=== PATIENT | female | born 1935 | race Hispanic/Latino ===

== ENCOUNTER → 2018-12-08 | Day surgery (SDC) | payer MEDICARE ==
[2018-12-07 14:58] LABS: BASOPHILS % 0.4 % (0.0-1.0); EOSINOPHILS # (AUTO) 0.2 (0.0-0.4); EOSINOPHILS % 2.7 % (0.0-6.0); HEMATOCRIT 38.8 % (34.2-44.1); HEMOGLOBIN 12.7 g/dL (12.0-16.0); LYMPHOCYTES # (AUTO) 2.2 (1.0-3.2); MEAN CORPUSCULAR HEMOGLOBIN 28.6 pg (28-32); MEAN CORPUSCULAR HGB CONC 32.7 g/dL (31-35); MEAN CORPUSCULAR VOLUME 87.4 fL (81-99); MONOCYTES # (AUTO) 0.4 (0.2-0.8); MONOCYTES % 6.5 % (4.4-11.3); NEUTROPHILS # (AUTO) 3.9 (2.1-6.9); NEUTROPHILS % 57.1 % (38.7-80.0); PLATELET COUNT 270 x10e3/uL (140-360); RED BLOOD COUNT 4.44 x10e6/uL (3.6-5.1); RED CELL DISTRIBUTION WIDTH 13.4 % (11.7-14.4)
--- NOTE | 2018-12-07 15:04 | Diagnostic Imaging Report ---
EXAMINATION: CHEST 2 VIEWS INDICATION: Knee pain. Preop. ^PRE OP ^[id number] ^[id number] ^ANESTH PROT COMPARISON: None FINDINGS: TUBES and LINES: None. LUNGS: Lungs are well inflated. Lungs are clear. There is no evidence of pneumonia or pulmonary edema. PLEURA: No pleural effusion or pneumothorax. HEART AND MEDIASTINUM: The cardiomediastinal silhouette is unremarkable. BONES AND SOFT TISSUES: No acute osseous lesion. Soft tissues are unremarkable. UPPER ABDOMEN: No free air under the diaphragm. IMPRESSION: No acute thoracic abnormality. Signed by: Dr. Piter Robles M.D. on 12/07/2018 3:01 PM
[~2018-12-08] MED LIST: ACETAMINOPHEN/CODEINE 300MG - 30MG TAB ONE; BUPIVACAINE 0.5%/EPI 30 ML SDV INJ ONE; CEFAZOLIN SOD 2 GM/D5W 50ML 50 ML IV ONE; CLOPIDOGREL75 MG PO; DESFLURANE 240 ML BTL INH ONE; DEXAMETHASONE SOD PHOS INJ 4 MG/ML VIAL ONE; EPHEDRINE SULFATE INJ 50 MG/10 ML SYR ONE; FENTANYL CITRATE/PF 100MCG/2 ML INJ ONE; FLUOXETINE HCL20 MG PO; HYDRALAZINE HCL50 MG; ISOSORBIDE MONO20 MG PO; LIDOCAINE HCL 2% LOCAL INJ 5 ML SDV VIAL INJ ONE; METOPROLOL TART50 MG PO; MIDAZOLAM HCL 2 MG/2 ML VIAL ONE; MOBIC15 MG; ONDANSETRON HCL INJ 2MG/ML 2ML 2 MG/ML VIAL ONE; PROPOFOL IV EMULSION 10 MG/ML 20 ML VIAL ONE; RYBIX; ULTRAM50 MG PO
--- OUTSIDE RECORDS SUMMARY | 2018-12-08 07:52 | XMS REPORT | Summary of Care ---
Author Author [facility] Organization [facility] Address Unknown Phone Unavailable Encounter SHIVANI Fox(FIN) [id number] Date(s): 12/31/17 - 12/31/17 [facility] [address], [address] [place] [address]- [phone] Discharge Disposition: Home or Self Care Attending Physician: Lucian Enamorado MD Vital Signs Most recent to 1 oldest [Reference Range]: Height 154.94 cm (12/31/17 2:24 PM) Temperature Oral 97.6 DegF [96.4-99.1 DegF] (12/31/17 2:24 PM) Blood Pressure 133/81 mmHg [90-140/60-90 mmHg] (12/31/17 2:24 PM) Respiratory Rate 14 BRMIN [14-20 BRMIN] (12/31/17 2:24 PM) Peripheral Pulse 65 bpm Rate [60-100 bpm] (12/31/17 2:24 PM) Weight 83.807 kg (12/31/17 2:24 PM) Body Mass Index 34.91 m2 (12/31/17 2:24 PM) Problem List Condition Effective Dates Status Health Status Informant Blurry vision, left Active eye(Confirmed) Carpal tunnel Active syndrome(Confirmed) Chronic kidney Active disease, stage 3(Confirmed) Constipation(Confirm Active ed) Eczema(Confirmed) Active Edema of both Active legs(Confirmed) Rectocele(Confirmed) Active Hypertensive kidney Active disease, stage III(Confirmed) Impaired fasting Active glucose(Confirmed) Blindness of right Active eye(Confirmed) Left lumbar Active radiculopathy(Confir med) Major Active depression(Confirmed ) Hyperlipidemia, Active mixed(Confirmed) Obesity(Confirmed) Active Primary Active osteoarthritis of knees, bilateral(Confirmed) Ptosis(Confirmed) Active CAD S/P percutaneous Active coronary angioplasty(Confirme d) Right shoulder Active pain(Confirmed) History of coronary Active artery stent placement(Confirmed) Urinary Active incontinence, urge(Confirmed) Allergies, Adverse Reactions, Alerts Substance Reaction Severity Status NKDA Active Medications No Known Medications Results No data available for this section Immunizations Given and Recorded Vaccine Date Status Refusal Reason pneumococcal 13-valent vaccine1 09/23/17 Given influenza virus vaccine, inactivated2 08/03/17 Given influenza virus vaccine, inactivated 09/08/16 Given influenza virus vaccine, inactivated 09/11/15 Given influenza virus vaccine, inactivated3 08/02/14 Given influenza virus vaccine, inactivated4 08/23/13 Given pneumococcal 23-valent vaccine5 11/26/09 Given 1Result Comment: Patient waited 15 minutes, no reaction noted. 2Result Comment: Patient waited 15 minutes, no allergic reaction. 3Result Comment: fluzone high dose [[id number]]. Migrated from OBS ; Data migrated from [employer] on 12/04/2015. 4Result Comment: fluzone (>3 yrs.) [[id number]]. Migrated from OBS ; Data migrated from [employer] on 12/04/2015. 5Result Comment: historical. Migrated from OBS ; Data migrated from [employer] on 12/04/2015. Procedures Procedure Date Related Diagnosis Body Site Status Eye examination 02/04/17 Completed Cardiac catheterization1 Completed Cataract surgery2 Completed Cholecystectomy Completed Repair of ptosis Completed Suspension of bladder Completed 1and stent on 02/2011 , cath 10/28/2013 in [facility] 2left eye Social History Social History Type Response Substance Abuse Use: None. Alcohol Never Smoking Status Never smoker; Exposure to Tobacco Smoke None; Cigarette Smoking Last 365 Days No; Reg Smoking Cessation Counseling No entered on: 12/31/17 Assessment and Plan No data available for this section
--- OUTSIDE RECORDS SUMMARY | 2018-12-08 07:52 | XMS REPORT | Summary of Care ---
Author Author [facility] Organization [facility] Address Unknown Phone Unavailable Encounter HQ Ruddy(FIN) [id number] Date(s): 09/23/17 - 09/23/17 [facility] [address], [address] [place], [place] [address]- [phone] Discharge Disposition: Home or Self Care Attending Physician: Lucian Enamorado MD Vital Signs Most recent to 1 oldest [Reference Range]: Height 157.48 cm (09/23/17 11:15 AM) Temperature Oral 98.0 DegF [96.4-99.1 DegF] (09/23/17 11:15 AM) Blood Pressure 112/64 mmHg [90-140/60-90 mmHg] (09/23/17 11:15 AM) Respiratory Rate 16 BRMIN [14-20 BRMIN] (09/23/17 11:15 AM) Peripheral Pulse 67 bpm Rate [60-100 bpm] (09/23/17 11:15 AM) Weight 85 kg (09/23/17 11:15 AM) Body Mass Index 34.27 m2 (09/23/17 11:15 AM) Problem List Condition Effective Dates Status Health Status Informant Blurry vision, left Active eye(Confirmed) Chronic kidney Active disease, stage 3(Confirmed) Constipation(Confirm [...] Substance Reaction Severity Status NKDA Active Medications amoxicillin 500 mg oral tablet 500 mg=1 tab, PO, BID, X 10 day, # 20 tab, 0 Refill(s), Pharmacy: [id number] Start Date: 09/23/17 Stop Date: 10/03/17 Status: Ordered Results No data available for this section [...] allergic reaction. 3Result Comment: fluzone high dose [[id number]]. Migrated from OBS ; Data migrated from [employer] on 12/04/2015. 4Result Comment: fluzone (>3 yrs.) [[id number]]. Migrated from OBS ; Data migrated from [employer] on 12/04/2015. 5Result Comment: historical. Migrated from OBS ; Data migrated from [employer] on 12/04/2015. Procedures Procedure Date Related Diagnosis Body Site Eye examination 02/04/17 Cardiac catheterization1 Cataract surgery2 Cholecystectomy Repair of ptosis Suspension of bladder 1and stent on 02/2011 , cath 10/28/2013 in [facility] 2left eye Social History Social History Type Response Substance Abuse Use: None. Alcohol Never Smoking Status Never smoker; Exposure to Tobacco Smoke None; Cigarette Smoking Last 365 Days No; Reg Smoking Cessation Counseling No Assessment and Plan No data available for this section
--- OUTSIDE RECORDS SUMMARY | 2018-12-08 07:52 | XMS REPORT | Summary of Care ---
Author Author [facility] Organization [facility] Address Unknown Phone Unavailable Encounter SHIVANI Fox(FIN) [id number] Date(s): 05/11/18 - 05/12/18 [facility] [address], [address] [place], [place] [address]- [phone] Vital Signs No data available for this section Problem List Condition Effective Dates Status Health [...] Substance Reaction Severity Status NKDA Active Medications hydrochlorothiazide-losartan 12.5 mg-50 mg oral tablet See Instructions, # 90 tab, Refill(s) 1, TAKE 1 TABLET BY MOUTH DAILY, 07/06/18 0:34:58 CDT, Pharmacy: [email or web address] [id number] Start Date: 05/28/18 Stop Date: 07/06/18 Status: Completed hydrochlorothiazide-losartan 12.5 mg-50 mg oral tablet 1 tab, PO, Daily, # 90 tab, 1 Refill(s), Pharmacy: [email or web address] [id number] Start Date: 07/06/18 Status: Ordered hydrochlorothiazide-losartan 12.5 mg-50 mg oral tablet 1 tab, PO, Daily, # 30 tab, 1 Refill(s), Pharmacy: [facility] [id number] Start Date: 05/11/18 Stop Date: 08/26/18 Status: Discontinued Results No data available for this section Immunizations Given and Recorded Vaccine Date Status Refusal Reason influenza virus vaccine, inactivated 08/26/18 Given influenza virus vaccine, inactivated1 08/03/17 Given influenza virus vaccine, inactivated 09/08/16 Given influenza virus vaccine, inactivated 09/11/15 Given influenza virus vaccine, inactivated2 08/02/14 Given influenza virus vaccine, inactivated3 08/23/13 Given pneumococcal 13-valent vaccine4 09/23/17 Given pneumococcal 23-valent vaccine5 11/26/09 Given 1Result Comment: Patient waited 15 minutes, no allergic reaction. 2Result Comment: fluzone high dose [[id number]]. Migrated from OBS ; Data migrated from [employer] on 12/04/2015. 3Result Comment: fluzone (>3 yrs.) [[id number]]. Migrated from OBS ; Data migrated from [employer] on 12/04/2015. 4Result Comment: Patient waited 15 minutes, no reaction noted. 5Result Comment: historical. Migrated from OBS ; Data migrated from [employer] on 12/04/2015. Procedures Procedure Date Related Diagnosis Body Site Status Eye examination 04/26/18 Completed Cardiac catheterization1 Completed Cataract surgery2 Completed Cholecystectomy Completed Repair of ptosis Completed Suspension of bladder Completed 1and stent on 02/2011 , cath 10/28/2013 in [facility] 2left eye Social History Social History Type Response Substance Abuse Use: None. Alcohol Never Smoking Status Never smoker; Exposure to Tobacco Smoke None; Cigarette Smoking Last 365 Days No; Reg Smoking Cessation Counseling No entered on: 09/23/18 Assessment and Plan No data available for this section
--- OUTSIDE RECORDS SUMMARY | 2018-12-08 07:52 | XMS REPORT ---
Author [facility] Address Unknown Phone Unavailable Care Team Providers Care Lead Java Programmer Name Role Phone DIVINE MALAGON Unavailable Unavailable Problems This patient has no known problems. Allergies, Adverse Reactions, Alerts This patient has no known allergies or adverse reactions. Medications This patient has no known medications. Results Test Description Test Time Test Comments Text Results Atomic Results Result Comments CHEST 2 VIEWS 2018-12-07 15:00:00 [place] [address] Patient Name: OPHELIA LONDONO MR #: [id number] : 1935 Age/Sex: 83/F Req #: [id number] Adm Physician: Ordered by: DIVINE MALAGON MD Report #: [id number] Location: OR Room/Bed: Procedure: [id number] DX/CHEST 2 VIEWS Exam Date: 12/07/18 Exam Time: 1439 REPORT STATUS: Signed EXAMINATION: CHEST 2 VIEWS INDICATION: Knee p ain. Preop. PRE OP [id number] ANESTH PROT COMPARISON: None FINDINGS: TUBES and LINES: None. LUNGS: Lungs are well inflated. Lungs are clear. There is no evidence of pneumonia or pulmonary edema. PLEURA: No pleural effusion or pneumothorax. HEART AND MEDIASTINUM: The cardiomediastinal silhouette is unremarkable. BONES AND SOFT TISSUES: No acute osseous lesion. Soft tissues are unremarkable. UPPER ABDOMEN: No free air under the diaphragm. IMPRESSION: No acute thoracic abnormality. Signed by: Dr. Piter Robles M.D. on 12/07/2018 3:01 PM Dictated By: PITER ROBLES MD, MD 1501 Transcribed By: DARLING on 12/07/18 1501 COPY TO: DIVINE MALAGON MD
--- OUTSIDE RECORDS SUMMARY | 2018-12-08 07:52 | XMS REPORT | Summary of Care ---
Author Author [facility] Organization [facility] Address Unknown Phone Unavailable Encounter SHIVANI Fox(VIOLETA) [id number] Date(s): 12/31/17 - 12/31/17 [facility] [address], [address] [place] [address] [phone] Discharge Disposition: Home or Self Care Attending [...] allergic reaction. 3Result Comment: fluzone high dose [[id number]]. Migrated from OBS ; Data migrated from [employer] on 12/04/2015. 4Result Comment: fluzone (>3 yrs.) [[id number]]. Migrated from OBS ; Data migrated from [employer] on 12/04/2015. 5Result Comment: historical. Migrated from OBS ; Data migrated from [employer] on 12/04/2015. Procedures Procedure Date Related Diagnosis Body Site Status Eye examination 02/04/17 Completed Cardiac catheterization1 Completed Cataract surgery2 Completed Cholecystectomy Completed Repair of ptosis Completed Suspension of bladder Completed 1and stent on 02/2011 , cath 10/28/2013 in [facility] 2left eye Social History Social History Type Response Substance Abuse Use: None. Alcohol Never Smoking Status Never smoker; Exposure to Tobacco Smoke None; Cigarette Smoking Last 365 Days No; Reg Smoking Cessation Counseling No entered on: 12/31/17 Assessment and Plan No data available for this section
--- OUTSIDE RECORDS SUMMARY | 2018-12-08 07:52 | XMS REPORT | Summary of Care ---
Author Author [facility] Organization [facility] Address Unknown Phone Unavailable Encounter HQ Brielle_orion(FIN) [id number] Date(s): 05/05/18 - 05/05/18 [facility] [address], [address] [place] [address] [phone] Discharge Disposition: Home or Self Care Attending Physician: Lucian Enamorado MD Vital Signs Most recent to 1 oldest [Reference Range]: Height 154.94 cm (05/05/18 2:17 PM) Temperature Oral 97.9 DegF [96.4-99.1 DegF] (05/05/18 2:17 PM) Blood Pressure 108/51 mmHg [90-140/60-90 mmHg] (05/05/18 2:17 PM) Peripheral Pulse 65 bpm Rate [60-100 bpm] (05/05/18 2:17 PM) Weight 85.682 kg (05/05/18 2:17 PM) Body Mass Index 35.69 m2 (05/05/18 2:17 PM) Problem List Condition Effective Dates Status [...] allergic reaction. 3Result Comment: fluzone high dose [[id number]]. Migrated from OBS ; Data migrated from [employer] on 12/04/2015. 4Result Comment: fluzone (>3 yrs.) [[id number]]. Migrated from OBS ; Data migrated from [employer] on 12/04/2015. 5Result Comment: historical. Migrated from OBS ; Data migrated from [employer] on 12/04/2015. Procedures Procedure Date Related Diagnosis Body Site Status Eye examination 04/26/18 Completed Cardiac catheterization1 Completed Cataract surgery2 Completed Cholecystectomy Completed Repair of ptosis Completed Suspension of bladder Completed 1and stent on 02/2011 , cath 10/28/2013 in [facility] 2left eye Social History Social History Type Response Substance Abuse Use: None. Alcohol Never Smoking Status Never smoker; Exposure to Tobacco Smoke None; Cigarette Smoking Last 365 Days No; Reg Smoking Cessation Counseling No entered on: 05/05/18 Assessment and Plan No data available for this section
--- OUTSIDE RECORDS SUMMARY | 2018-12-08 07:52 | XMS REPORT | CCD ---
Author Author [facility] Organization [facility] Address Unknown Phone Unavailable Care Team Providers Care Poultry Husbandry Worker Name Role Phone Joel Galeana CP Allergies, Adverse Reactions, Alerts Substance Reaction Status NKDA Active Problem List Condition Effective Dates Status Arthritis Resolved Benign hypertension Active Cholecystectomy Active Hypertension Resolved OA - Osteoarthritis Active Stent Active Medications Medication Instructions Start Date End Date Status morphine Sulfate 4 mg, Route: IVP, ONCE, Dosing 10/07/2012 10/07/2012 Completed Weight 77.273, kg, Start date: 10/07/12 0:30:00, Stop date: 10/07/12 0:30:00 Flexeril 5 mg oral 5 mg, PO, TID, PRN, 20 tab, Muscle 10/07/2012 Ordered tablet spasm, Substitution Allowed Vital Signs Most recent to oldest [Reference Range]: 1 Height 157.48 cm (10/06/2012 20:24:00) Weight 77.273 kg (10/06/2012 20:24:00) Results URINALYSIS Most recent to oldest [Reference Range]: 1 UA Turbidity [Clear] Slight *ABN* (10/06/2012 23:32:00) UA Color [Yellow] Yellow *NA* (10/06/2012 23:32:00) UA pH [5.0-8.0] 5.0 (10/06/2012 23:32:00) UA Spec Grav [<=1.030] 1.013 (10/06/2012 23:32:00) UA Glucose [Negative mg/dL] Negative mg/dL *NA* (10/06/2012 23:32:00) UA Blood [Negative] Negative (10/06/2012 23:32:00) UA Ketones [Negative mg/dL] Negative mg/dL *NA* (10/06/2012 23:32:00) UA Protein [Negative mg/dL] Negative mg/dL (10/06/2012 23:32:00) UA Urobilinogen [0.1-1.0 mg/dL] <=1.0 mg/dL *NA* (10/06/2012 23:32:00) UA Bili [Negative] Negative *NA* (10/06/2012 23:32:00) UA Leuk Est [Negative] Trace *ABN* (10/06/2012 23:32:00) UA Nitrite [Negative] Negative (10/06/2012 23:32:00) UA WBC [0-5 /HPF] 2 /HPF (10/06/2012 23:32:00) UA RBC [0-2 /HPF] 1 /HPF (10/06/2012 23:32:00) UA Sq Epi [Few /LPF] Few /LPF *NA* (10/06/2012 23:32:00) UA Hyal Cast [0-2 /LPF] 5 /LPF *HI* (10/06/2012 23:32:00) Microbiology Reports PROCEDURE:Culture: Urine STATUS: In Progress BODY SITE: COLLECTED DATE/TIME: 10/06/2012 23:54:00 SOURCE: Urine, Clean Catch FREE TEXT SOURCE: PRELIMINARY REPORTS Preliminary Report No Growth; Holding Procedures Procedures Date Related Diagnosis Cholecystectomy
--- OUTSIDE RECORDS SUMMARY | 2018-12-08 07:52 | XMS REPORT | Summary of Care ---
Author Author [facility] Organization [facility] Address Unknown Phone Unavailable Encounter SHIVANI Fox(VIOLETA) [id number] Date(s): 11/17/18 - 11/17/18 [facility] [address] [place] [address] Discharge Disposition: Home or Self Care Attending Physician: Salvatore Menjivar MD Referring Physician: Salvatore Menjivar MD Vital Signs No data available for this [...] Reaction Severity Status NKDA Active Medications No data available for this section Results No data available for this section [...] allergic reaction. 2Result Comment: fluzone high dose [[id number]]. Migrated from OBS ; Data migrated from [employer] on 12/04/2015. 3Result Comment: fluzone (>3 yrs.) [[id number]]. Migrated from OBS ; Data migrated from [employer] on 12/04/2015. 4Result Comment: Patient waited 15 minutes, no reaction noted. 5Result Comment: historical. Migrated from OBS ; Data migrated from [employer] on 12/04/2015. Procedures Procedure Date Related Diagnosis Body Site Status Eye examination 04/26/18 Completed Cardiac catheterization1 Completed Cataract surgery2 Completed Cholecystectomy Completed Repair of ptosis Completed Suspension of bladder Completed 1and stent on 02/2011 , cath 10/28/2013 in [facility] 2left eye Social History Social History Type Response Substance Abuse Use: None. Alcohol Never Smoking Status Never smoker; Exposure to Tobacco Smoke None; Cigarette Smoking Last 365 Days No; Reg Smoking Cessation Counseling No entered on: 09/23/18 Assessment and Plan No data available for this section
--- OUTSIDE RECORDS SUMMARY | 2018-12-08 07:52 | XMS REPORT | Continuity of Care Document ---
Author Author [facility] Interface Address Unknown Phone Unavailable Problems Problem Status Onset Date Classification Date Reported Comments Source S83.221A Active 11/11/2018 [facility] R60.0, M79.604 Active 09/23/2018 [facility] Discharge Diagnosis: Sciatica 06/14/2015 06/17/2015 [facility] Discharge Diagnosis: Hypertension 06/14/2015 06/17/2015 [facility] BACK PAIN Active 06/14/2015 [facility] Blurring of visual image<sup>1, 2</sup> Active 01/24/2015 Problem 06/17/2015 Data migrated from [employer] on 03/27/15. [facility] Blurry vision, left eye Active Problem 11/29/2018 [facility] Chronic kidney disease, stage 3 Active Problem 11/29/2018 [facility] Constipation Active Problem 11/29/2018 [facility] Eczema Active Problem 11/29/2018 [facility] Edema of both legs Active Problem 11/29/2018 [facility] Rectocele Active Problem 11/29/2018 [facility] Hypertensive kidney disease, stage III Active Problem 11/29/2018 [facility] Impaired fasting glucose Active Problem 11/29/2018 [facility] Blindness of right eye Active Problem 11/29/2018 [facility] Left lumbar radiculopathy Active Problem 11/29/2018 [facility] Major depression Active Problem 11/29/2018 [facility] Hyperlipidemia, mixed Active Problem 11/29/2018 [facility] Obesity Active Problem 11/29/2018 [facility] Primary osteoarthritis of knees, bilateral Active Problem 11/29/2018 [facility] Ptosis Active Problem 11/29/2018 [facility] CAD S/P percutaneous coronary angioplasty Active Problem 11/29/2018 [facility] Right shoulder pain Active Problem 11/29/2018 [facility] History of coronary artery stent placement Active Problem 11/29/2018 [facility] Urinary incontinence, urge Active Problem 11/29/2018 [facility] Carpal tunnel syndrome Active Problem 11/29/2018 [facility] Arthritis Resolved Problem 06/17/2015 [facility] Benign hypertension Active Problem 06/17/2015 [facility] Cholecystectomy Active Problem 06/17/2015 [facility] Hypertension Resolved Problem 06/17/2015 [facility] OA - Osteoarthritis Active Problem 06/17/2015 [facility] Stent Active Problem 06/17/2015 [facility] Arthritis Resolved Problem 10/08/2012 [facility] Benign hypertension Active Problem 10/08/2012 [facility] Cholecystectomy Active Problem 10/08/2012 [facility] Hypertension Resolved Problem 10/08/2012 [facility] OA - Osteoarthritis Active Problem 10/08/2012 [facility] Stent Active Problem 10/08/2012 [facility] Medications Medication Details Route Status Patient Instructions Ordering Provider Order Date Source Hydrochlorothiazide 12.5 MG / Losartan Potassium 50 MG Oral Tablet 1 tab, PO, Daily, # 90 tab, 1 Refill(s), Pharmacy: [facility] [id number] Active 07/06/2018 [facility] Hydrochlorothiazide 12.5 MG / Losartan Potassium 50 MG Oral Tablet See Instructions, # 90 tab, Refill(s) 1, TAKE 1 TABLET BY MOUTH DAILY, 07/06/18 0:34:58 CDT, Pharmacy: [facility] [id number] No Longer Active 05/29/2018 [facility] Hydrochlorothiazide 12.5 MG / Losartan Potassium 50 MG Oral Tablet 1 tab, PO, Daily, # 30 tab, 1 Refill(s), Pharmacy: [facility] [id number] No Longer Active 05/12/2018 [facility] amoxicillin 500 mg oral tablet 500 mg=1 tab, PO, BID, X 10 day, # 20 tab, 0 Refill(s), Pharmacy: [facility] [id number] Active 09/23/2017 [facility] Methocarbamol 500 MG Oral Tablet [Robaxin] 500 mg=1 tab, PO, Q6H, PRN Spasms, X 7 day, # 28 tab, 0 Refill(s) Active 06/14/2015 [facility] Acetaminophen 325 MG / Hydrocodone Bitartrate 5 MG Oral Tablet [[place] 5/325] 1-2 tab, PO, Q4-6H, PRN Pain, X 5 day, # 15 tab, 0 Refill(s) Active 06/14/2015 [facility] Morphine 6 mg, Route: IM, Drug form: INJ, ONCE, Dosing Weight 79.545, kg, Priority: STAT, Start date: 06/14/15 10:26:00, Stop date: 06/14/15 10:26:00 Inactive 06/14/2015 [facility] Baclofen 5 mg, 0.5 tab, Route: PO, Drug form: TAB, ONCE, Dosing Weight 79.545, kg, Start date: 06/14/15 9:22:00, Stop date: 06/14/15 9:22:00, ..Special Instructions: ..Notes: (Same As: Carol) Inactive 06/14/2015 [facility] Acetaminophen 325 MG / Hydrocodone Bitartrate 5 MG Oral Tablet [[place] 5/325] 1 tab, Route: PO, Drug Form: TAB, Dosing Weight 79.545, kg, ONCE, STAT, Start date: 06/14/15 9:22:00, Stop date: 06/14/15 9:22:00 Inactive 06/14/2015 [facility] Flexeril 5 mg oral tablet 5 mg, PO, TID, PRN, 20 tab, Muscle spasm, Substitution Allowed PO Active [facility] 10/07/2012 [facility] morphine Sulfate 4 mg, Route: IVP, ONCE, Dosing Weight 77.273, kg, Start date: 10/07/12 0:30:00, Stop date: 10/07/12 0:30:00 IVP No Longer Active [facility] 10/07/2012 [facility] Allergies, Adverse Reactions, Alerts Substance Category Reaction Severity Reaction type Status Date Reported Comments Source Immunizations Immunization Date Given Site Status Last Updated Comments Source influenza virus vaccine, inactivated 08/26/2018 Right Deltoid completed [facility] pneumococcal 13-valent vaccine<sup>1</sup> 09/23/2017 Right Deltoid completed [facility] Result Comment: Patient waited 15 minutes, no reaction noted. [facility] pneumococcal 13-valent vaccine<sup>4</sup> 09/23/2017 Right Deltoid completed [facility] Result Comment: Patient waited 15 minutes, no reaction noted. [facility] influenza virus vaccine, inactivated<sup>2</sup> 08/03/2017 Right Deltoid completed [facility] Result Comment: Patient waited 15 minutes, no allergic reaction. [facility] influenza virus vaccine, inactivated<sup>1</sup> 08/03/2017 Right Deltoid completed [facility] Result Comment: Patient waited 15 minutes, no allergic reaction. [facility] influenza virus vaccine, inactivated 09/08/2016 Left Deltoid completed [facility] influenza virus vaccine, inactivated 09/11/2015 Left Deltoid completed [facility] influenza virus vaccine, inactivated<sup>3</sup> 08/02/2014 Left Deltoid completed GE Result Comment: fluzone high dose [[id number]]. Migrated from OBS ; Data migrated from [employer] on 12/04/2015. [facility] influenza virus vaccine, inactivated<sup>2</sup> 08/02/2014 Left Deltoid completed GE Result Comment: fluzone high dose [[id number]]. Migrated from OBS ; Data migrated from [employer] on 12/04/2015. [facility] influenza virus vaccine, inactivated<sup>4</sup> 08/23/2013 completed [facility] Result Comment: fluzone (>3 yrs.) [[id number]]. Migrated from OBS ; Data migrated from [employer] on 12/04/2015. [facility] influenza virus vaccine, inactivated<sup>3</sup> 08/23/2013 completed [facility] Result Comment: fluzone (>3 yrs.) [[id number]]. Migrated from OBS ; Data migrated from [employer] on 12/04/2015. [facility] pneumococcal 23-valent vaccine<sup>5</sup> 11/26/2009 completed GE Result Comment: historical. Migrated from OBS ; Data migrated from [employer] on 12/04/2015. [facility] Results Order Name Results Value Reference Range Date Interpretation Comments Source Knee wo contrast MRI Knee wo contrast MRI EXAM: MR RIGHT KNEE WITHOUT CONTRAST DATE: 11/17/2018 13:05 GALLERY INTERN INDICATION: Right knee pain. COMPARISON: No prior studies available for comparison. TECHNIQUE: Multiplanar, multisequence noncontrast imaging of the knee. FINDINGS: Menisci: Medial meniscus: There is a complex tear of the posterior horn and body of the medial meniscus. There is also an avulsion of the posterior medial meniscal root with associated meniscal extrusion by about 5 mm. Lateral meniscus: There is a complex tear of the lateral meniscus involving the entire lateral meniscus. There is free margin blunting. Minimal lateral meniscal extrusion. Ligaments: There is a high-grade partial tear of the ACL. Mild associated anterior transition of tibia relative to femur. There is a low-grade partial tear of the PCL. MCL and LCL complex are intact. Extensor mechanism: The quadriceps tendon, patella and the patellar tendon are intact. There are enthesophytes off the patella. Muscles: No signal abnormality in the muscles. Cartilage: Medial cartilage: There is a large region of full-thickness chondral loss along the weightbearing surfaces of the medial compartment. Lateral cartilage: There is diffuse chondral surface irregularity and chondral fraying. Patellofemoral cartilage: There is diffuse chondral thinning. Small full- thickness chondral fissures identified along the patellar apex. Bone: No acute fracture. There are scattered regions of degenerative marrow edema cystic changes. There are osteophytes. Soft tissue: Within normal limits. No abnormality of the neurovascular structures. Fluid: There is a moderate-sized joint effusion. There is internal synovial debris, compatible with synovitis. Small Short's cyst with internal debris as well. IMPRESSION: 1. Complex tear of the posterior horn and body of the medial meniscus. Posterior medial meniscal root avulsion with associated medial meniscal extrusion. 2. Complex tear of the lateral meniscus. 3. High-grade partial tear of the ACL. Mild associated anterior translation of tibia relative to femur. 4. Low-grade partial tear of the PCL. 5. Tricompartmental osteoarthritis and cartilage loss. Scattered regions of degenerative marrow edema and cystic change. 6. Moderate-sized joint effusion with synovitis. Small Short's cyst. SL: [id number] 11/17/2018 - - Read by: Justin Heck MD Dictated Date/time: 11/17/18 14:32 Electronically Signed by: Justin Heck MD 11/17/18 14:52 FINAL REPORT [facility] Ext Lower Venous Doppler Unilat US Ext Lower Venous Doppler Unilat US Patient Name: AMITA LONDONO : 1935; Age: 82 years Female MR: [id number] Study: Ext Lower Venous Doppler Unilat US 09/24/2018 4:07 PM GALLERY INTERN Clinical Indication: Right leg pain, swelling and edema. COMPARISON: None TECHNIQUE: Sonographic evaluation of the right lower extremity veins was performed using high resolution B-mode imaging, along with pulse and color Doppler imaging. FINDINGS: Right lower extremity: The common femoral vein, femoral vein, popliteal vein and visualized posterior tibial/calf veins are patent. There is no echogenic debris to suggest deep venous thrombosis. The saphenofemoral junction is normal. Right popliteal fossa complex fluid collection measures 2.9 x 1.2 x 1.9 cm. IMPRESSION: 1. No deep venous thrombosis. 2. Complex right Short's cyst. SL: [id number] 09/24/2018 - - Read by: Dawson Bee MD Dictated Date/time: 09/24/18 13:06 Electronically Signed by: Daswon Bee MD 09/24/18 13:07 FINAL REPORT [facility] Spine lumbar 2 or 3 views DX Spine lumbar 2 or 3 views DX Lumbar spine series 3 views: COMPARISON: 10/07/2012. FINDINGS: There is generalized osteopenia. No evidence for fracture or subluxation. Mild to moderate spondylosis is present throughout the lumbar spine. No significant decrease in disc space height is present at any level. Overall appearance of the vertebral bodies and the disc spaces is stable from previous study of 10/07/2012. There is asymmetric narrowing of the SI joints with the right side demonstrating more narrowing and sclerosis. Findings likely related to osteoarthritis. Moderate atherosclerotic disease is present in the abdominal aorta. SL:13 06/14/2015 - - Read by: Rufus Carter MD Dictated Date/time: 06/14/15 10:45 Electronically Signed by: Rufus Carter MD 06/14/15 10:49 FINAL REPORT [facility] Microbiology Culture: Urine 10/07/2012 [facility] URINALYSIS UA Urobilinogen <=1.0 mg/dL
*NA*
(10/06/2012 23:32:00) <sup> </sup> 0.1 - 1.0 10/07/2012 [facility] URINALYSIS UA Ketones Negative mg/dL *NA* (10/06/2012 23:32:00) Negative 10/07/2012 [facility] URINALYSIS UA Glucose Negative mg/dL *NA* (10/06/2012 23:32:00) Negative 10/07/2012 NA [facility] URINALYSIS UA Leuk Est Trace *ABN* (10/06/2012 23:32:00) Negative 10/07/2012 ABN [facility] URINALYSIS UA WBC 2 /HPF 0 - 5 10/07/2012 Normal [facility] URINALYSIS UA Sq Epi Few /LPF *NA* (10/06/2012 23:32:00) Few 10/07/2012 NA [facility] URINALYSIS UA Bili Negative *NA* (10/06/2012 23:32:00) Negative 10/07/2012 NA [facility] URINALYSIS UA Nitrite Negative (10/06/2012 23:32:00) Negative 10/07/2012 Normal [facility] URINALYSIS UA Blood Negative (10/06/2012 23:32:00) Negative 10/07/2012 Normal [facility] URINALYSIS UA RBC 1 /HPF 0 - 2 10/07/2012 Normal [facility] URINALYSIS UA Hyal Cast 5 /LPF 0 - 2 10/07/2012 [facility] URINALYSIS UA Color Yellow *NA* (10/06/2012 23:32:00) Yellow 10/07/2012 [facility] URINALYSIS UA Turbidity Slight *ABN* (10/06/2012 23:32:00) Clear 10/07/2012 ABN [facility] URINALYSIS UA Spec Grav 1.013 <=1.030 10/07/2012 Normal [facility] URINALYSIS UA pH 5.0 5.0 - 8.0 10/07/2012 Normal [facility] URINALYSIS UA Protein Negative mg/dL (10/06/2012 23:32:00) Negative 10/07/2012 Normal [facility] Vital Signs Vital Sign Value Date Comments Source Height 154.94 cm 05/05/2018 [facility] Weight 85.682 05/05/2018 [facility] BMI Calculated 35.69 05/05/2018 [facility] Systolic (mm Hg) 108 05/05/2018 [facility] Diastolic (mm Hg) 51 05/05/2018 [facility] Heart Rate 65 05/05/2018 [facility] Temperature Oral (F) 97.9 F 05/05/2018 [facility] Heart Rate 65 12/31/2017 [facility] Respitory Rate 14 12/31/2017 [facility] Temperature Oral (F) 97.6 F 12/31/2017 [facility] BMI Calculated 34.91 12/31/2017 [facility] Height 154.94 cm 12/31/2017 [facility] Weight 83.807 12/31/2017 [facility] Systolic (mm Hg) 133 12/31/2017 [facility] Diastolic (mm Hg) 81 12/31/2017 [facility] Respitory Rate 16 09/23/2017 [facility] Heart Rate 67 09/23/2017 [facility] Temperature Oral (F) 98.0 F 09/23/2017 [facility] Height 157.48 cm 09/23/2017 [facility] Weight 85 09/23/2017 [facility] BMI Calculated 34.27 09/23/2017 [facility] Systolic (mm Hg) 112 09/23/2017 [facility] Diastolic (mm Hg) 64 09/23/2017 [facility] Temperature Oral (F) 97.8 F 06/14/2015 [facility] Systolic (mm Hg) 197 06/14/2015 [facility] Diastolic (mm Hg) 81 06/14/2015 [facility] Heart Rate 60 06/14/2015 [facility] Respitory Rate 17 06/14/2015 [facility] Respitory Rate 16 06/14/2015 [facility] Systolic (mm Hg) 191 06/14/2015 [facility] Diastolic (mm Hg) 74 06/14/2015 [facility] Heart Rate 58 06/14/2015 [facility] Weight 79.545 06/14/2015 [facility] Heart Rate 61 06/14/2015 [facility] Systolic (mm Hg) 206 06/14/2015 [facility] Diastolic (mm Hg) 79 06/14/2015 [facility] Respitory Rate 18 06/14/2015 [facility] Temperature Oral (F) 97.6 F 06/14/2015 [facility] Weight 77.273 10/07/2012 [facility] Height 157.48 cm 10/07/2012 [facility] Encounters Location Location Details Encounter Type Encounter Number Reason For Visit Attending Provider ADM Date DC Date Status Source [facility] Emergency [id number] MARY ALARCON 10/06/2012 10/06/2012 Active [facility] [id number] Hasmukh Wylie 06/14/2015 06/14/2015 [facility] Outpatient [id number] LUCIAN MCCONNELL 06/21/[address] [facility] Outpatient [id number] LUCIAN MCCONNELL 09/11/[address] [facility] Outpatient [id number] LUCIAN MCCONNELL 12/14/2015 Active [facility] [id number] LUCIAN MCCONNELL 01/17/2016 Active [facility] [id number] LUCIAN MCCONNELL 05/23/2016 Active [facility] [id number] NURSE VISIT 09/08/2016 Active [facility] [id number] LUCIAN MCCONNELL 09/19/2016 Active [facility] [id number] LUCIAN MCCONNELL 2016 Active [facility] [id number] LUCIAN MCCONNELL 10/14/2016 Active [facility] [id number] LUCIAN MCCONNELL 12/10/2016 Active [facility] [id number] LUCIAN MCCONNELL 01/02/2017 Active [facility] [id number] LUCIAN MCCONNELL 02/25/2017 Active [facility] [id number] LUCIAN MCCONNELL 05/04/2017 Active [facility] [id number] LUCIAN MCCONNELL 08/03/2017 Active [facility] [id number] LUCIAN MCCONNELL 09/03/2017 Active [facility] [id number] MARIANELA BANGURA 09/23/2017 Active [facility] Primary Care [facility] Outpatient [id number] Lucian Mcconnell 09/23/2017 09/24/2017 [facility] Outpatient [id number] LUCIAN MCCONNELL 12/31/2017 [facility] Primary Care [facility] Outpatient [id number] Lucian Mcconnell 12/31/2017 01/01/2018 [facility] Outpatient [id number] LUCIAN MCCONNELL 05/05/2018 Active [facility] Primary Care [facility] Outpatient [id number] Lucian Mcconnell 05/05/2018 05/06/2018 [facility] Primary Care [facility] Phone Message [id number] 05/11/2018 05/13/2018 [facility] Outpatient [id number] LUCIAN MCCONNELL 05/26/2018 Active [facility] [id number] LUCIAN MCCONNELL 08/26/2018 Active [facility] [id number] LUCIAN MCCONNELL 09/23/2018 [facility] Outpatient [id number] Salvatore Menjivar 11/17/2018 11/18/2018 [facility] Outpatient [id number] LUCIAN MCCONNELL 12/24/[address] [facility] Procedures Procedure Code Date Perfomer Comments Source Eye examination [id number] 04/26/2018 [facility] Eye examination [id number] 04/26/2018 [facility] Eye examination [id number] 02/04/2017 [facility] Cardiac catheterization<sup>1</sup> [id number] and stent on 02/2011 , cath 10/28/2013 in [facility] Cataract surgery<sup>2</sup> [id number] left eye [facility] Cholecystectomy [id number] [facility] Repair of ptosis [id number] [facility] Suspension of bladder [id number] [facility] Cholecystectomy [id number] [facility] Cholecystectomy [id number] [facility] Cardiac catheterization<sup>1</sup> [id number] and stent on 02/2011 , cath 10/28/2013 in [facility] Cataract surgery<sup>2</sup> [id number] left eye [facility] Repair of ptosis [id number] [facility] Suspension of bladder [id number] [facility]
--- OUTSIDE RECORDS SUMMARY | 2018-12-08 07:52 | XMS REPORT | Summary of Care ---
Author Author [facility] Organization [facility] Address Unknown Phone Unavailable Encounter SHIVANI Fox(VIOLETA) [id number] Date(s): 06/14/15 - 06/14/15 [facility] [address] [place] [address]- [phone] Discharge Diagnosis: Sciatica Discharge Diagnosis: Hypertension Discharge Disposition: Home Attending Physician: Hasmukh Wylie MD Vital Signs 1 2 3 Most recent to oldest [Reference Range]: 97.8 DegF (06/14/15 12:30 PM) 97.6 DegF (06/14/15 7:45 AM) Temperature Oral [96.4-99.1 DegF] 1 2 3 Most recent to oldest [Reference Range]: 197/81 mmHg *HI* (06/14/15 12:30 PM) 191/74 mmHg *HI* (06/14/15 9:00 AM) 206/79 mmHg *HI* (06/14/15 7:45 AM) Blood Pressure [90-140/60-90 mmHg] 1 2 3 Most recent to oldest [Reference Range]: 17 BRMIN (06/14/15 12:30 PM) 16 BRMIN (06/14/15 9:00 AM) 18 BRMIN (06/14/15 7:45 AM) Respiratory Rate [14-20 BRMIN] 1 2 3 Most recent to oldest [Reference Range]: 60 bpm (06/14/15 12:30 PM) 58 bpm *LOW* (06/14/15 9:00 AM) 61 bpm (06/14/15 7:45 AM) Peripheral Pulse Rate [60-100 bpm] 1 2 3 Most recent to oldest [Reference Range]: 79.545 kg (06/14/15 7:45 AM) Weight Problem List Condition Effective Dates Status Health Status Informant Arthritis(Confirmed) Resolved Benign Active hypertension(Confirm ed) Blurring of visual 01/24/15 Active image1, 2 Cholecystectomy(Conf Active irmed) Hypertension(Confirm Resolved ed) OA - Active Osteoarthritis(Confi rmed) Stent(Confirmed) Active 1Data migrated from [employer] on 05/02/15. 2Data migrated from [employer] on 03/27/15. Allergies, Adverse Reactions, Alerts Substance Reaction Severity Status NKDA Active Medications baclofen 5 mg, 0.5 tab, Route: PO, Drug form: TAB, ONCE, Dosing Weight 79.545, kg, Start date: 06/14/15 9:22:00, Stop date: 06/14/15 9:22:00, .. Special Instructions: .. Notes: (Same As: Carol) Start Date: 06/14/15 Stop Date: 06/14/15 Status: Completed morphine Sulfate 6 mg, Route: IM, Drug form: INJ, ONCE, Dosing Weight 79.545, kg, Priority: STAT, Start date: 06/14/15 10:26:00, Stop date: 06/14/15 10:26:00 Start Date: 06/14/15 Stop Date: 06/14/15 Status: Completed [place] 5/325 oral tablet 1-2 tab, PO, Q4-6H, PRN Pain, X 5 day, # 15 tab, 0 Refill(s) Start Date: 06/14/15 Stop Date: 06/19/15 Status: Ordered [place] 5/325 oral tablet 1 tab, Route: PO, Drug Form: TAB, Dosing Weight 79.545, kg, ONCE, STAT, Start da te: 06/14/15 9:22:00, Stop date: 06/14/15 9:22:00 Start Date: 06/14/15 Stop Date: 06/14/15 Status: Completed Robaxin 500 mg oral tablet 500 mg=1 tab, PO, Q6H, PRN Spasms, X 7 day, # 28 tab, 0 Refill(s) Start Date: 06/14/15 Stop Date: 06/21/15 Status: Ordered Results No data available for this section Immunizations No data available for this section Procedures Procedure Date Related Diagnosis Body Site Cholecystectomy Social History Social History Type Response Smoking Status Never smoker; Exposure to Tobacco Smoke None; Cigarette Smoking Last 365 Days No; Reg Smoking Cessation Counseling No Assessment and Plan No data available for this section
[2018-12-08 16:50] VITALS: BP 154/67
--- NOTE | 2018-12-09 17:29 | Operative Report ---
DATE OF PROCEDURE: December 08, 2018 PREOPERATIVE DIAGNOSES 1. Right knee medial meniscus tear. 2. Right knee lateral meniscus tear. 3. Right knee degenerative joint disease of the knee. POSTOPERATIVE DIAGNOSES 1. Right knee medial meniscus tear. 2. Right knee lateral meniscus tear. 3. Right knee degenerative joint disease of the knee. OPERATIONS/PROCEDURES PERFORMED 1. The patient underwent a right knee examination under anesthesia. 2. Right knee arthroscopy. 3. Right knee partial medial meniscectomy. 4. Right knee partial lateral meniscectomy. 5. Right knee chondroplasty of the patella, the trochlea, the medial femoral condyle, the medial tibial plateau, the lateral femoral condyle, and lateral tibial plateau. [employer] FINISH[employer] RANGE OPERATOR: Harika Winston ANESTHESIA: General endotracheal intubation anesthesia. IV FLUIDS: Per the anesthesia record. BLOOD LOSS: Minimal. COMPLICATIONS: None. BRIEF DESCRIPTION OF THE PATIENT'S OPERATIVE PROCEDURE: Ms. Nelson was taken to the operating room and placed in the supine position on the operating table. Following induction of general anesthesia, as well as endotracheal intubation, the patient's right lower extremity was examined under anesthesia. She was found to have a mild effusion within the knee joint, but otherwise ligamentously stable knee. The patient's lower extremity was prepped and draped in the standard surgical fashion. A 2-portal technique was used to provide this patient arthroscopic evaluation of the knee joint. Examination of the suprapatellar pouch, medial and lateral gutters found no evidence of loose bodies. There was, however, evidence of chondromalacia of the patellar and trochlear surfaces. The scope was advanced in the medial compartment. Examination of the medial compartment demonstrated a torn medial meniscus. There was also chondromalacia of the articulating surfaces. A combination of biting forceps and a motorized shaver were used to resect the torn portion of the meniscus. Chondroplasties of the medial femoral condyle and medial tibial plateau were performed at this time. The scope was advanced to the intercondylar notch. The anterior cruciate ligament was identified and found to be intact. Scope was advanced in the lateral compartment, and chondromalacia of the articulating surfaces were encountered. There was also a torn lateral meniscus. A combination of biting forceps and a motorized shaver were used resect the torn portion of the meniscus. Chondroplasties of the lateral femoral condyle and lateral tibial plateau were performed at this time. Scope was advanced in the suprapatellar pouch and chondroplasties of the patellar and trochlea were performed. The knee was deflated of its sterile normal saline. Each of the portal sites were closed using 4-0 nylon suture. The portal sites as well as the knee itself were injected with 0.5% Marcaine with epinephrine. Sterile dressings were applied. The patient was awakened and taken to the postanesthesia care in stable condition. Job#: [id number] LOGAN
== END | disposition home or self-care (01) ==
LOC: OR 07:50
PROVIDERS: ATTEND Specialist
DX: S83.221A Peripheral tear of medial meniscus, current injury, right knee, initial encounter (principal); S83.261A Peripheral tear of lateral meniscus, current injury, right knee, initial encounter; M17.11 Unilateral primary osteoarthritis, right knee; M22.41 Chondromalacia patellae, right knee; R00.1 Bradycardia, unspecified; M71.21 Synovial cyst of popliteal space [Baker], right knee; I10 Essential (primary) hypertension; X58.XXXA Exposure to other specified factors, initial encounter; Z01.810 Encounter for preprocedural cardiovascular examination; Z01.812 Encounter for preprocedural laboratory examination; Z01.818 Encounter for other preprocedural examination; Z79.02 Long term (current) use of antithrombotics/antiplatelets; Z68.32 Body mass index [BMI] 32.0-32.9, adult
CPT/HCPCS: 29880; 36415; 71046; 85025; 93005; J0690; J1100; J2001; J2250; J2405; J2704

== ENCOUNTER 2021-12-24 05:00 | Observation (INO) | payer MEDICARE ==
[2021-12-23 10:14] LABS: BASOPHILS % 0.3 % (0.0-1.0); EOSINOPHILS # (AUTO) 0.3 (0.0-0.4); EOSINOPHILS % 3.5 % (0.0-6.0); HEMATOCRIT 33.4 % (34.2-44.1); HEMOGLOBIN 10.9 g/dL (12.0-16.0); LYMPHOCYTES # (AUTO) 3.1 (1.0-3.2); LYMPHOCYTES % 42.3 % (18.0-39.1); MEAN CORPUSCULAR HEMOGLOBIN 28.7 pg (28-32); MEAN CORPUSCULAR HGB CONC 32.6 g/dL (31-35); MEAN CORPUSCULAR VOLUME 87.9 fL (81-99); MONOCYTES # (AUTO) 0.6 (0.2-0.8); MONOCYTES % 7.7 % (4.4-11.3); NEUTROPHILS # (AUTO) 3.4 (2.1-6.9); NEUTROPHILS % 45.9 % (38.7-80.0); PLATELET COUNT 283 x10e3/uL (140-360); RED CELL DISTRIBUTION WIDTH 13.5 % (11.7-14.4)
[2021-12-23 10:42] LABS: ANION GAP 12.1 mmol/L (8-16); CALCIUM 10.8 mg/dL (8.4-10.2); CREATININE, SERUM 1.66 mg/dL (0.57-1.11); POTASSIUM 4.1 mmol/L (3.5-5.1)
[~2021-12-24] VITALS: Ht 152.4 cm; Wt 78.0 kg
[~2021-12-24 05:00] MED LIST changes: -ACETAMINOPHEN/CODEINE 300MG - 30MG TAB ONE; +ALLOPURINOL100 MG PO; +AMLODIPINE BESYL5 MG PO; -BUPIVACAINE 0.5%/EPI 30 ML SDV INJ ONE; -CEFAZOLIN SOD 2 GM/D5W 50ML 50 ML IV ONE; +CYMBALTA30 MG PO; -DESFLURANE 240 ML BTL INH ONE; -DEXAMETHASONE SOD PHOS INJ 4 MG/ML VIAL ONE; +ELIQUIS5 MG PO; -EPHEDRINE SULFATE INJ 50 MG/10 ML SYR ONE; -FENTANYL CITRATE/PF 100MCG/2 ML INJ ONE; -HYDRALAZINE HCL50 MG; +HYDRALAZINE HCL50 MG PO; +LEVOTHYROXINE50 MCG PO; -LIDOCAINE HCL 2% LOCAL INJ 5 ML SDV VIAL INJ ONE; +LIPITOR10 MG PO; +LOSARTAN POTASS25 MG PO; -MIDAZOLAM HCL 2 MG/2 ML VIAL ONE; +OMEGA 3 1,0001 EACH PO; +OMEPRAZOLE40 MG PO; -ONDANSETRON HCL INJ 2MG/ML 2ML 2 MG/ML VIAL ONE; -PROPOFOL IV EMULSION 10 MG/ML 20 ML VIAL ONE; +VIT D3 PO
[2021-12-24] MEDS ORDERED: metoprolol PO (05:47)
[2021-12-24] MEDS ORDERED: GABAPENTIN 300 MG CAP ONE (06:00)
[2021-12-24] MEDS ORDERED: DEXAMETHASONE SOD PHOS 10 MG/1 ML VIAL ONE (06:00)
[2021-12-24] MEDS ORDERED: CELECOXIB 200 MG CAP ONE (06:00)
[2021-12-24] MEDS ORDERED: SODIUM CHLORIDE 0.9% 50ML 100 ML ONE (06:01)
[2021-12-24] MEDS ORDERED: ROPIVACAINE 246.25 MG, EPINEPHRINE HCL 1:1000 1ML 0.5 MG, CLONIDINE HCL 0.08 MG, KETORO... INJ ONE ×5 (06:45)
[2021-12-24] MEDS ORDERED: Vancomycin IV 1,000 MG ONE (06:57)
[2021-12-24] MEDS ORDERED: TRANEXAMIC ACID 1,000 MG/10 ML ML ONE (06:57)
[2021-12-24] MEDS ORDERED: SODIUM CHLORIDE 0.9% 500ML 500 ML ONE (06:57)
[2021-12-24] MEDS ORDERED: DOCUSATE SODIUM 100 MG CAP PO PRN (10:00)
[2021-12-24] MEDS ORDERED: DIPHENHYDRAMINE HCL INJ 50 MG/ML VIAL IV PRN (10:00)
[2021-12-24] MEDS ORDERED: SODIUM CHLORIDE 0.9% 1000ML 1,000 ML IV SCH (10:00)
[2021-12-24] MEDS ORDERED: ACETAMINOPHEN 650 MG SUPP PR PRN (10:00)
[2021-12-24] MEDS ORDERED: ONDANSETRON HCL INJ 2MG/ML 2ML 2 MG/ML VIAL IV PRN (10:00)
[2021-12-24] MEDS ORDERED: HYDROCODONE/APAP 5MG-325MG TAB PO PRN (10:00)
[2021-12-24] MEDS ORDERED: HYDROCODONE/APAP 7.5MG-325MG 1 EA TAB PO PRN (10:00)
[2021-12-24] MEDS ORDERED: KETOROLAC TROMETHAMINE 30 MG/ML VIAL IV PRN (10:00)
[2021-12-24] MEDS ORDERED: FENTANYL CITRATE/PF 100MCG/2 ML INJ ONE ×2 (10:42→12:19)
[2021-12-24 11:22] VITALS: BP 159/52
[2021-12-24 11:23] VITALS: BP 159/52
[2021-12-24] MEDS ORDERED: ACETAMINOPHEN 1000 MG/100 ML IV PRN (12:00)
[2021-12-24] MEDS ORDERED: MIDAZOLAM HCL 2 MG/2 ML VIAL ONE (12:19)
[2021-12-24] MEDS ORDERED: Cefazolin 1 GM in SODIUM CHLORIDE 0.9% 50ML 50 ML IV SCH (14:00)
[2021-12-24 15:55] VITALS: BP 170/71
[2021-12-24] MEDS ORDERED: ASPIRIN 325 MG TAB PO SCH (17:00)
[2021-12-24] MEDS ORDERED: CELECOXIB 100 MG CAP PO SCH (17:00)
[2021-12-24] MEDS ORDERED: PROPOFOL IV EMULSION 10 MG/ML 20 ML VIAL ONE (17:41)
[2021-12-24] MEDS ORDERED: POVIDONE IODINE 0.05% 0.05 % ML PO ONE (17:41)
[2021-12-24] MEDS ORDERED: LIDOCAINE HCL 2% LOCAL INJ 5 ML SDV VIAL INJ ONE (17:41)
[2021-12-24] MEDS ORDERED: ONDANSETRON HCL INJ 2MG/ML 2ML 2 MG/ML VIAL ONE (17:41)
[2021-12-24] MEDS ORDERED: SEVOFLURANE INHAL SOLN 250 ML PEN BTL ONE (17:41)
[2021-12-24] MEDS ORDERED: ROPIVACAINE 0.5% 5 MG/ML 30 ML SDV ONE (17:53)
[2021-12-24] MEDS ORDERED: ZOLPIDEM TARTRATE 5 MG TAB PO PRN (21:00)
[2021-12-25] MEDS ORDERED: CELECOXIB 200 MG CAP PO SCH (09:00)
== END 2021-12-24 18:03 | disposition home or self-care (01) ==
LOC: OR 05:00 → PACU V 10:22 → MED/SURG 10:57
PROVIDERS: ADMIT Specialist; ATTEND Specialist
DX: M17.12 Unilateral primary osteoarthritis, left knee (principal); E11.9 Type 2 diabetes mellitus without complications; I10 Essential (primary) hypertension; E78.00 Pure hypercholesterolemia, unspecified; K21.9 Gastro-esophageal reflux disease without esophagitis; E03.9 Hypothyroidism, unspecified; I25.2 Old myocardial infarction; F41.9 Anxiety disorder, unspecified; I25.10 Atherosclerotic heart disease of native coronary artery without angina pectoris; D64.9 Anemia, unspecified; Z01.810 Encounter for preprocedural cardiovascular examination; Z01.812 Encounter for preprocedural laboratory examination; Z01.818 Encounter for other preprocedural examination; Z20.822 Contact with and (suspected) exposure to COVID-19
CPT/HCPCS: 27447; 36415; 71046; 73560; 80048; 85025; 86850; 86900; 86920; 93005; 94799; 97110; 97116 ×2; 97162; 97530; C1713 ×2; C1776 ×3; G0378; J0171; J0690; J1100; J1885; J2001; J2250; J2405; J2704; J2795; J3010; J3370; J7030; J7040; U0002